=== PATIENT | female | born 2000 | race Caucasian/White ===

== ENCOUNTER 2022-10-07 01:39 | Outpatient (CLI) | payer OTHER, SELFPAY ==
--- NOTE | 2022-10-07 10:19 | DI.RAD_ITS ---
Exam(s) XR THORACIC SPINE COMPLETE EXAM: XR THORACIC SPINE COMPLETE CLINICAL HISTORY: back pain,,m54.9. TECHNIQUE: 2D digital imaging was performed of the thoracic spine. Three views were obtained. AP, swimmer's and lateral views were obtained. COMPARISON: No exams were available for comparison FINDINGS: BONES: There is no fracture or destructive lesion. The vertebral bodies and posterior elements are un remarkable. DISKS:Alignment is within normal limits. Interverebral disc spaces are maintained. SOFT TISSUE: Visualized lungs are clear. IMPRESSION: Unremarkable radiographs of the thoracic spine. DATA REPOSITORY: RADIATION DOSE DELIVERED:
--- NOTE | 2022-10-07 10:29 | DI.RAD_ITS ---
Exam(s) XR CERVICAL SPINE COMP 4-5V EXAM: XR CERVICAL SPINE COMP 4-5V CLINICAL HISTORY: pain. TECHNIQUE: 2D digital imaging was performed. Five images were obtained. AP, odontoid, lateral and bi lateral oblique images were obtained. COMPARISON: No exams were available for comparison FINDINGS: The odontoid is intact. The lateral masses are well aligned. There is straightening of the normal ce rvical lordosis. This may be due to muscle spasm or patient positioning. The vertebral bodies, disc spaces and posterior elements are well maintained. No acute fracture or subluxation is present. No significant neural foraminal stenosis is present. The cervical thoracic junction is well maintained. The prevertebral soft tissues are unremarkable. Lung apices are clear. IMPRESSION: Unremarkable radiographs of the cervical spine. DATA REPOSITORY: RADIATION DOSE DELIVERED:
--- NOTE | 2022-10-07 10:39 | DI.RAD_ITS ---
Exam(s) XR LUMBAR SPINE COMPLETE EXAM: XR LUMBAR SPINE COMPLETE CLINICAL HISTORY: back pain,m54.9. TECHNIQUE: 2D digital imaging was performed of the lumbar spine. Five images were obtained. AP, la teral, right oblique, left oblique and L5-S1 spot views were obtained. COMPARISON: No exams were available for comparison FINDINGS: BONES: No fracture or destructive lesion. There is a transitional lumbosacral vertebra. No facet hyp ertrophy identified. DISKS: Intervertebral disc spaces are maintained. ALIGNMENT: Lumbar spinal alignment is within normal limits. No spondylolysis or spondylolisthesis. SOFT TISSUE: Normal. IMPRESSION: Unremarkable radiographs of the lumbar spine. DATA REPOSITORY: RADIATION DOSE DELIVERED:
== END 2022-10-07 01:59 ==
LOC: DI 01:39
PROVIDERS: Visit Provider Nurse Practitioner Family
DX: M54.9 Dorsalgia, unspecified (principal)
CPT/HCPCS: 72050; 72072; 72110

== ENCOUNTER 2023-12-11 15:13 | Emergency (ER) | payer BC, SELFPAY ==
[2023-12-11 15:24] VITALS: BP 180/98; PULSE 74; RESP 16; TEMP 37.4; O2SAT 97
--- NOTE | 2023-12-11 15:46 | W.ED.GENAD ---
Discharge Plan Discharge Details Chief Complaint: PsychEval Primary Care Provider: Unknown,Unknown ED Provider: Juan Davey Home Meds and New Rx's Prescriptions: No Action No Known Home Meds HPI General Date/Time Provider Initiated Documentation: 12/11/23 15:34. HPI Narrative: 23-year-old female history of ADHD, not on any medication presents with worsening anxiety and depression over the last couple of weeks to months, persistent in nature, escalating to the point of having thoughts of intentionally crashing her car in order to kill herself. Currently living alone at her grandparents [facility]. Feels safe. Denies prior psychiatric hospitalization Related Data Home Medications ?Medication ?Instructions ?Recorded ?Confirmed Unknown [No Known Home Meds] 12/11/23 12/11/23 Allergies Allergy/AdvReac Type Severity Reaction Status Date / Time No Known Allergies Allergy Verified 12/11/23 15:35 General Stated Complaint: PsychEval ORQUIDEA: 2 Exam Narrative Exam Narrative: Alert oriented interactive No respiratory distress No external signs of trauma No signs of intoxication Interactive moving all extremities without deficit ambulatory without assistance Tearful, anxious, SI Superficial ecchymosis to right wrist Course Vital Signs Vital signs: Vital Signs Temperature 37.4 C 12/11/23 15:24 Pulse 74 12/11/23 15:24 Respiratory Rate 16 12/11/23 15:24 Blood Pressure 180/98 H 12/11/23 15:24 Pulse Oximetry 97 12/11/23 15:24 Temperature 37.4 C 12/11/23 15:24 Temperature Source Skin 12/11/23 15:24 Pulse 74 12/11/23 15:24 Respiratory Rate 16 12/11/23 15:24 Respiratory Effort Normal, Non-Labored 12/11/23 15:29 Blood Pressure 180/98 H 12/11/23 15:24 Blood Pressure Position Sitting 12/11/23 15:24 Pulse Oximetry 97 12/11/23 15:24 Oxygen Delivery Method Room Air 12/11/23 15:24 Oxygen Flow Rate 0 12/11/23 15:24 Pain Level 0 12/11/23 15:24 Medical Decision Making 23-year-old female presents with progressive anxiety and depression over the last several weeks to months now with active suicide plan to intentionally crash her car in order to kill herself, patient denies any current psychiatric medication despite history of ADHD, no prior psychiatric admission, lives alone at her grandparents [facility], feels safe, no external signs of trauma no signs of intoxication no signs of infection low suspicion for metabolic derangement encephalitis or encephalopathy, likely primary anxiety depression leading to suicidal ideation patient benefit from evaluation by [facility] to consider safety plan versus inpatient treatment; patient will be moved to zone B for her safety and comfort and will provide urine sample for test and urine drug tox screen 17: 31 discussed case with Olga Ferro of [facility], we will initiate evaluation Quality:SDOH Health Related Social Needs: No Data to Display [facility] Social History Smoking/Tobacco Use Status: Current-Occasional Tobacco Type: e-cigarettes Smoking risk assessment performed?: Yes Alcohol Intake: current Alcohol Intake frequency: a few times a week Alcohol type: beer, wine and hard liquor Drug use: Never Substance use type: does not use Housing: house Do you feel safe at home: No Do you feel safe in your relationship?: Yes PAWSS Have you Been Recently Intoxicated or Drunk Within the Last 30 days?: Yes Have you Ever Experienced Previous Episodes of Alcohol Withdrawal?: No Have you ever Experienced Withdrawal Seizures?: No Have you ever Experienced Delirium Tremens(DT)s?: No Have you ever undergone Alcohol Rehabilitation Treatment (i.e, inpt ot outpatient treatment programs)?: No Have you ever Experienced Blackouts?: No Have you ever Combined Alcohol with other Downers within the last 90 days?: No Have you ever Combined Alcohol with any other Substance of Abuse during the last 90 days?: No Positive Blood Alcohol level on Presentation? [PCS.BAL]: No Evidence of Increased Autonomic Activity (i.e. HR>120, tremor, sweating, agitation, nausea)?: No Result: 1
[2023-12-11 16:22] LABS: *AMPHETAMINES SCREEN URINE Negative (Negative); *BARBITURATES SCREEN URINE Negative (Negative); *BENZODIAZEPINES SCREEN URINE Negative (Negative); Cannabinoids THC Negative (Negative); Cocaine Screen,Urine Negative (Negative); METHADONE URINE SCREEN Negative (Negative); OPIATES URINE SCREEN Negative (Negative)
[2023-12-11 16:23] LABS: Tricyclic Antidepressants Negative (Negative)
--- NOTE | 2023-12-11 18:13 | ED.PROG_ITS ---
Date of service: 12/11/23 Time of Service: 18:13 Medical Decision Making Care assumed from outgoing provider. Patient is a 23-year-old female with some suicidal ideation. She was evaluated by [facility] and there is a safety plan agreed upon. At this time patient feels comfortable going home. No further emergent workup indicated. Return precautions advised. Discharged in good condition. Quality:SDOH Health Related Social Needs: No Data to Display Sign Out Sign Out Data: Sign Out Comment: voluntary, SI, [facility] contacted for eval, med cleared Last updated by Juan Davey MD at 12/11/23 17:33 Discharge Plan Discharge Details Chief Complaint: PsychEval Primary Care Provider: Unknown,Unknown ED Provider: Gustavo Ulrich Home Meds and New Rx's Prescriptions: No Action No Known Home Meds
[2023-12-11 18:23] VITALS: BP 126/85; PULSE 84; RESP 14; TEMP 36.2; O2SAT 100
--- NOTE | 2023-12-11 19:44 | PDOC.MHCN ---
Date of service: 12/11/23 Time of Service: 19:45 PHQ-9 Over the last 2 weeks, how often have you been bothered by any of the following problems? 1. Little interest or pleasure in doing things: nearly every day 2. Feeling down, depressed, or hopeless: several days 3. Trouble falling or staying asleep, or sleeping too much: several days 4. Feeling tired or having little energy: more than half the days 5. Poor appetite or overeating: nearly every day 6. Feeling bad about yourself - or that you are a failure or have let yourself and your family down: nearly every day 7. Trouble concentrating on things, such as reading the newspaper or watching television: nearly every day 8. Moving or speaking so slowly that other people could have noticed? - Or the opposite - being so fidgety or restless that you have been moving around a lot more than usual: more than half the days 9. Thoughts that you would be better off or of hurting yourself in some way: more than half the days Total score: 20 If you checked off any problems, how difficult have these problems made it for you to do your work, take care of things at home, or get along with other people?: somewhat difficult PHQ-9 Results: Positive Source: Developed by Drs. Iván Christian, Rehana Arriaga, Andre Marrero and colleagues, with an educational freda from [employer]. Suicide Severity Rate CSSRS Have you wished you were or wished you could go to sleep and not wake up?: Yes Have you actually had any thoughts of killing yourself?: Yes CSSRS2 Have you been thinking about how you might do this?: Yes Have you had these thoughts and had some intention of acting on them?: Yes Have you started to work out or worked out the details of how to kill yourself? Do you intend to carry out this plan?: No CSSRS3 Have you ever done anything, started to do anything or prepared to do anything to end your life?: No CSSRS4 Was this within the past three months?: No Screening Score Total Score: 4 Screening: Positive Mental Health Emergency Note Release [facility] release signed:: Yes Reason for Visit The client is new to [facility] today. She denied any previous hospitalizations. She is followed by her PCP in [place] and has a follow up on Tuesday. [facility] outreached after the client admitted herself for SI with plan to crash her car following an increase in anxiety and depression in the last two months but has been dealing with symptoms such as these diagnosis for approximately 2 years. She felt she needed to keep herself safe. In the last 2 weeks has the pt presented for ES prior to today?: No Client Information Client is: New Well Housed: Yes Non Suicidal Self Injury Current: No History: No Safety Risk/Harm to Self or Others Current Ideation to Harm Self or Others: No Risk: Does risk to harm exist?: yes. Access to means: Yes. Types of Means: Other weapons. Counseling provided: Yes Risk: Moderate Risk Duty to warn indicated: No Asssessment/Mental Status Appearance: Well groomed Attitude: Cooperative Behavior: Unremarkable Speech: Normal Affect: Cogruent with mood Mood: Stressed, Depressed and Anxious Thought process: Goal directed Hallucinations: No Delusions: No Attention: Unremarkable Perception: Not impaired Orientation: Fully orientated Memory: Intact Insight: Good Judgement: Good Neurovegetative Symptoms Sleep: Decrease (Inconsistent standard 3 hours a night. ) Appetitie: Decrease (inconsistent has some food aversions and body dysmorphia and can't eat at t hose times. Averages 2 meals a day. ) Interests: Decrease Energy: Decrease Libido: Not applicable Substance Use: Do you use nicotine?: No Have you used substances in the last 7 days?: No Additional Issues: Assaultive/Threatening Behavior: No Medical Concerns: No Client engaged in active self harm w/weapon: No Threatening to run away: No Child reported abuse/neglect: No Voluntarily presenting for services: Yes Domestic violence is a concern: No Extreme Psychosis or extreme behavior is present: No Impression The client is a 23-year-ol, single, female who is currently living in her grandmother's [place] for the season. She attends [employer] and is in her second year. 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 [facility] and is originally from [place]. She uses She/Them pronouns. All underrepresented categories were honored during this assessment. The client engaged in all screening tools including the CSSRS however, despite her results this clinician is not yet CAMS trained. The client denied any previous attempt's of suicide and currently denied any intent only having persevering thoughts since she reconnected with her ex boyfriend when he outreached to her. She presented sitting at her desk in her room working with an activity box offered by [facility]. She was fully engaged in the assessment. The client is fully oriented and has good insight and judgment. She acknowledges she needs more supports and was worried about going h9ome by herself tonight without being assessed first as she was scared at how intense her thoughts were becoming. She recognizes that she is in trouble because I zone out. [facility] and given:: [address] and Other ([address] in [place]) Plan/Disposition Recommended Disposition: Other (Follow up with her already in place treatment team. ). Plan: The client agreed to participate in a safety plan to include check in calls with [facility] for the next 5 days. The client was educated on [address] and [address] as additional resources. Person reported agreement to plan: Yes Reports/communication Outcome discussed with: ED/Personnel
== END 2023-12-11 18:27 | disposition home or self-care (01) ==
PROVIDERS: Emergency Medicine; Emergency Provider Emergency Medicine
DX: R45.851 Suicidal ideations (principal); F41.9 Anxiety disorder, unspecified; F32.A Depression, unspecified; F90.9 Attention-deficit hyperactivity disorder, unspecified type; F17.290 Nicotine dependence, other tobacco product, uncomplicated
CPT/HCPCS: 00123; 80307; 81025; 96127; 99285

== ENCOUNTER 2024-01-02 11:31 | Outpatient (CLI) | payer BC, SELFPAY ==
--- NOTE | 2024-01-02 11:30 | RT.EKG_ITS ---
APPROVED REPORT Exam: Resting ECG Reason for Exam: Chest Pain Patient Location: O HR:68 bpm ECG Measurements Heart Rate 68 AXIS RI 119 P 47 QRSd 75 QRS 69 QT 401 T 50 QTc 427 Conclusion Sinus rhythm...normal P axis, V-rate 50- 99 Borderline short RI interval...RI int <120mS Otherwise normal ECG Otherwise normal ECG
== END 2024-01-02 11:32 | disposition home or self-care (01) ==
PROVIDERS: Visit Provider Internal Medicine Cardiovascular Disease
DX: R07.9 Chest pain, unspecified (principal)
CPT/HCPCS: 93005; 93010